=== PATIENT | female | born 1995 | race Caucasian/White ===

== ENCOUNTER 2017-08-01 21:17 | Emergency (ER) | payer SELFPAY ==
[2017-08-01] MEDS ORDERED: ACETAMINOPHEN 500 MG TABLET PO ONE (21:23)
[2017-08-01] MEDS ORDERED: ONDANSETRON 4 MG ODT TABLET SL ONE (21:45)
[2017-08-01] MEDS ORDERED: OSTELTAMIVIR 75 MG CAP PO ONE (21:45)
--- NOTE | 2017-08-01 21:46 | Emergency Department Record ---
History of Present Illness - General Chief Complaint: Cough Stated Complaint: COUGH,AGATA Time Seen by Provider: 08/01/17 21:22 Source: Patient Mode of Arrival: Ambulatory Limitations: No limitations - History of Present Illness Initial Comments: 22 yo female presents with fevers, chills, muscle aches, cough, and nausea. The onset was this morning. She denies any diarrhea. She did not have a flu shot this years. She is drinking fluids without difficulty. MD Complaint: Cough, Fever, Nasal congestion, Rhinorrhea, Other (body aches) Onset/Timin -: Hour(s) Severity: Moderate Severity scale (1-10): 8 Consistency: Constant Improves With: Nothing Worsens With: Nothing Context: Sick contacts Associated Symptoms: Denies other symptoms, Chills, Cough, Fever, Headache, Myalgias, Nausea, Rhinorrhea, Vomiting Treatments Prior to Arrival: None - Related Data Previous Rx's Medication Instructions Recorded Ondansetron [Zofran Odt] 4 mg PO Q8H #10 tab.rapdis 08/01/17 Oseltamivir Phosphate [Tamiflu] 75 mg PO BID #10 capsule 08/01/17 Allergies Allergy/AdvReac Type Severity Reaction Status Date / Time No Known Drug Allergies Allergy Verified 08/01/17 21:21 Travel Screening - Travel/Exposure Within Last 30 Days Have you traveled within the last 30 days?: No - Travel/Exposure Within Last Year Have you traveled outside the [place] in the last year?: No - Additonal Travel Details Have you been exposed to anyone with a communicable illness?: No Review of Systems Constitutional: Reports: Chills, Fever, Malaise Eyes: Denies: Eye discharge, Eye pain, Photophobia, Vision change ENT: Reports: Congestion, Throat pain. Denies: Ear pain, Epistaxis Respiratory: Reports: Cough. Denies: Stridor, Wheezes Cardiovascular: Denies: Chest pain, Palpitations, Syncope Endocrine: Denies: Fatigue Gastrointestinal: Reports: Nausea, Vomiting. Denies: Abdominal pain, Diarrhea Genitourinary: Denies: Dysuria, Urgency Musculoskeletal: Reports: Myalgia. Denies: Arthralgia, Joint swelling Skin: Denies: Bruising, Change in color, Rash Neurological: Reports: Headache. Denies: Numbness, Weakness Psychiatric: Denies: Anxiety Hematological/Lymphatic: Denies: Blood Clots, Easy bleeding, Easy bruising, Swollen glands Past Medical History - SOCIAL HISTORY Smoking Status: Heavy tobacco smoker (>10/day) Alcohol Use: None Drug Use: None - RESPIRATORY Hx Respiratory Disorders: No - CARDIOVASCULAR Hx Cardio Disorders: No - NEURO Hx Neuro Disorders: No - GI Hx GI Disorders: No - Hx Genitourinary Disorders: No - ENDOCRINE Hx Endocrine Disorders: No - MUSCULOSKELETAL Hx Musculoskeletal Disorders: No - PSYCH Hx Psych Problems: Yes Hx Anxiety: Yes Hx Depression: Yes - HEMATOLOGY/ONCOLOGY Hx Hematology/Oncology Disorders: No Family Medical History Any Significant Family History?: No Hx Anxiety: Mother, Grandparents Hx Cancer: Father, Mother, Grandparents Physical Exam - General General Appearance: Alert, Oriented x3, Cooperative, No acute distress Limitations: No limitations - Head Head exam: Normal inspection - Eye Eye exam: Normal appearance, PERRL. negative: Conjunctival injection, Scleral icterus - ENT ENT exam: Normal exam, Mucous membranes moist, Normal orophraynx, TM's normal bilaterally Ear exam: Normal external inspection Nasal Exam: Discharge (clear) Mouth exam: Normal external inspection Teeth exam: Normal inspection. negative: Dental caries Throat exam: Normal inspection. negative: Tonsillar erythema, Tonsillar exudate - Neck Neck exam: Normal inspection, Full ROM. negative: Lymphadenopathy, Tenderness - Respiratory Respiratory exam: Normal lung sounds bilaterally. negative: Respiratory distress - Cardiovascular Cardiovascular Exam: Tachycardia - GI/Abdominal GI/Abdominal exam: Soft. negative: Tenderness - Rectal Rectal exam: Deferred - exam: Deferred - Extremities Extremities exam: Normal inspection, Full ROM, Normal capillary refill. negative: Tenderness - Back Back exam: Reports: Normal inspection, Full ROM. Denies: CVA tenderness (R), CVA tenderness (L), Muscle spasm, Rash noted, Tenderness - Neurological Neurological exam: Alert, Oriented X3 - Psychiatric Psychiatric exam: Normal affect - Skin Skin exam: Dry, Intact, Normal color, Warm Course Vital Signs 08/01/17 21:21 Temperature 101.2 F H Pulse Rate 122 H Respiratory 28 H Rate Blood Pressure 106/64 Pulse Ox 95 - Reevaluation(s) Reevaluation #1: 08/01/17 21:52 Influenza A positive Disposition Disposition: Discharge Clinical Impression: Influenza A Disposition: Home, Self-Care Condition: (1) Good Instructions: Influenza (ED) Additional Instructions: Rest and stay well hydrated Return if worse, vomiting, concerns about dehydration Prescriptions: Ondansetron [Zofran Odt] 4 mg PO Q8H #10 tab.rapdis Oseltamivir Phosphate [Tamiflu] 75 mg PO BID #10 capsule Forms: Patient Portal Access Time of Disposition: 21:54 Quality - Quality Measures Quality Measures: N/A - Blood Pressure Screening Does Patient Have Any of the Following: No Blood Pressure Classification: Normal BP Reading Systolic Measurement: 106 Diastolic Measurement: 64 Screening for High Blood Pressure: < Normal BP, F/U Not Required > [[id number]]
[2017-08-01 21:47] LABS: INFLUENZA A POSITIVE (NEGATIVE); INFLUENZA B NEGATIVE (NEGATIVE)
== END 2017-08-01 22:13 | disposition home or self-care (01) ==
LOC: ER 21:17
DX: J10.1 Influenza due to other identified influenza virus with other respiratory manifestations (principal); F17.210 Nicotine dependence, cigarettes, uncomplicated
CPT/HCPCS: 87400; 99282